=== PATIENT | male | born 1975 | race Caucasian/White ===

== ENCOUNTER 2016-12-14 16:39 | Inpatient (IN) | payer MEDICAID ==
--- NOTE | 2016-12-14 17:04 | C.PDOC ---
History Of Present Illness Pt was transferred here for psychiatric admission. Pt was medically cleared at the referring facility. Time Seen by Provider: 12/14/16 16:52 Chief Complaint (Nursing): Psychiatric Evaluation History Per: Patient Onset/Duration Of Symptoms: Days Current Symptoms Are (Timing): Still Present Suicide/Self Injury Attempted (Context): None Modifying Factor(s): Alcohol Severity: Moderate Associated Symptoms: Depression Additional History Per: Prior Records Past Medical History Reviewed: Historical Data, Nursing Documentation, Vital Signs Vital Signs: Last Vital Signs Temp 98.5 F 12/14/16 16:44 Pulse 87 12/14/16 16:44 Resp 18 12/14/16 16:44 BP 137/64 12/14/16 16:44 Pulse Ox 96 12/14/16 16:44 - Medical History PMH: Bipolar Disorder (?) Surgical History: No Surg Hx Family History: States: Unknown Family Hx - Social History Hx Alcohol Use: Yes (daily) Hx Substance Use: No - Immunization History Hx Tetanus Toxoid Vaccination: No Hx Influenza Vaccination: No Hx Pneumococcal Vaccination: No Review Of Systems Constitutional: Negative for: Fever Cardiovascular: Negative for: Chest Pain Respiratory: Negative for: Shortness of Breath Gastrointestinal: Negative for: Vomiting, Abdominal Pain Musculoskeletal: Negative for: Neck Pain Skin: Negative for: Rash Neurological: Negative for: Weakness, Seizures Psych: Negative for: Psychosis Physical Exam - Physical Exam Appears: Non-toxic, No Acute Distress Skin: Normal Color, Warm, Dry, No Rash Head: Atraumatic, Normacephalic Eye(s): bilateral: Normal Inspection, PERRL, EOMI Neck: Normal ROM, Supple Cardiovascular: Rhythm Regular Respiratory: Normal Breath Sounds, No Accessory Muscle Use Gastrointestinal/Abdominal: Soft, No Tenderness Extremity: Normal ROM, No Deformity Neurological/Psych: Oriented x3, Normal Speech, Normal Motor, Normal Sensation ED Course And Treatment O2 Sat by Pulse Oximetry: 96 Pulse Ox Interpretation: Normal Disposition - Disposition Disposition: HOSPITALIZED Disposition Time: 17:04 Condition: STABLE - Clinical Impression Clinical Impression: Alcohol abuse, Depression Decision To Admit - Pt Status Changed To: Hospital Disposition Of: Inpatient - Admit Certification Admit to Inpatient:: After my assessment, the patient will require hospitalization for at least two midnights. This is because of the severity of symptoms shown, intensity of services needed, and/or the medical risk in this patient being treated as an outpatient. - InPatient: Physician Admission Certification: I certify that this patient requires 2 or more midnights of care for the following reason:: Psych. - . Bed Request Type: Psychiatry Admitting Physician: Trey Kessler Patient Diagnosis: Alcohol abuse, Depression
[2016-12-14 18:13] VITALS: O2SAT 99
--- NOTE | 2016-12-14 18:30 | PCM.BM ---
<Melania Dillon - Last Filed: 12/14/16 18:27> Treatment Plan Problems - Problems identified on initial assessmt Depression Date Initiated: 12/14/16 Time Initiated: 18:28 Assessment reference: NA Status: Active Alcohol abuse Date Initiated: 12/14/16 Time Initiated: 18:28 Assessment reference: NA Status: Active Treatment assets and liabiliti Patient Assests: adapts well, physically healthy, negotiates basic needs Patient Liabilities: live alone, substance abuse (Alcohol) - Milieu Protocol Maintain good personal hygiene: daily Encourage regular showers, daily Remind patient to perform daily oral care Maintain personal safety: every shift Educate patient to report safety concerns to staff, every shift Monitor environment for contraband/sharps Medication safety: Monitor for expected outcome, potential side effects: every shift, Assess barriers to learning: every shift, Assess readiness for medication education: every shift <Trey Kessler - Last Filed: 12/15/16 10:48> - Diagnosis (1) Depression Status: Acute Interventions: 12/15/16 10:48 Attend groups Take meds (2) Alcohol dependence Status: Acute Interventions: 12/15/16 10:48 Attend groups Take meds <Sivan Poe - Last Filed: 12/15/16 11:10>
[2016-12-14] MEDS ORDERED: Aluminum Hydroxide/Magnesium Hydroxide Susp (30 mL) PO PRN (18:55)
[2016-12-14] MEDS ORDERED: Aritificial Tears (15ml) OU SCH (20:15)
[2016-12-14] MEDS ORDERED: Aritificial Tears (15ml) OU PRN (21:20)
--- NOTE | 2016-12-15 10:46 | PCM.PSYCH ---
Initial Psychiatric Evaluation - Initial Psychiatric Evaluation Type of Admission: Voluntary Legal Status: Capacity Chief Complaint (in patient's own words): i was feeling depressed and suicidal History of Present Illness and Precipitating Events: Patient is a 41 year old single, unemployed male. He has a history of alcohol use disorder - severe and depression, and was admitted for treatment. Patient states he has "been drinking too much and I need to stop". He states that he started drinking after his mother two years ago in 2014 from pulmonary fibrosis. Patient drinks 1 750ml bottle of Vodka daily and his last drink was yesterday. Patient was transferred [facility]. Patient appeared depressed and continued to have poor insight and judgment regarding his illness and drinking. Patient remained a poor historian. he was superficially cooperative but guarded about the details. As per the staff, patient appeared very depressed and had withdrawal symptoms including shakes, anxiety, headache, nausea and sweating. Today patient appeared better than yesterday. He reports that he has been feeling depressed because he is cleaning out his mother's possessions now, so he drinks while doing so. Patient remained guarded depressive symptoms. He remained guarded about any withdrawal symptoms. He reports that he has worked and lived in [facility] for 9 years and came back to the [place] 6 months before his mother . He said that one day he went to the pharmacy to get medications for her and when he returned, she had . At that time, he went to [facility] for detox and treatment for depression. Patient reports that he has a conference in [place] on the and wants to be detoxed and discharged before then. He has a job offer to work [employer] in [facility] starting in January. Before he starts that job, he wants to do a 2 week rehab program in December. He reports depressed mood, anxiety and anhedonia. He denies any auditory or visual hallucinations. Past psych hx: [facility] for alcohol detox & depression in 2014. Denies use of tobacco, heroin, cocaine, marijuana and other drugs Family psych hx: denies psychiatric issues or drug use Social hx: Single, lives by himself, currently unemployed, has no kids Current Medications: Active Medications Generic Name Dose Route Start Last Admin Trade Name Freq PRN Reason Stop Dose Admin Al Hydrox/Mg Hydrox/Simethicone 30 ml 12/14/16 18:55 Maalox 30 Ml PO TID PRN Indigestion / Heartburn Artificial Tears 0 ml 12/14/16 21:20 Artificial Tears OU Q6H PRN Dry eyes Benztropine Mesylate 2 mg 12/14/16 18:53 Cogentin PO Q6 PRN Extra Pyramidal Symptoms Chlordiazepoxide 25 mg 12/15/16 00:00 12/15/16 06:24 Librium PO 12/19/16 23:59 25 mg Q6 HARDIK Administration Taper Chlordiazepoxide 25 mg 12/14/16 18:52 12/14/16 21:30 Librium PO 25 mg Q4H PRN Administration Alcohol Withdrawal Clonidine HCl 0.1 mg 12/14/16 18:52 Catapres PO Q4H PRN Symptoms of alcohol withdrawl Diphenhydramine HCl 50 mg 12/14/16 18:53 12/14/16 21:30 Benadryl PO 50 mg Q6 PRN Administration Extra Pyramidal Symptoms Folic Acid 1 mg 12/15/16 10:00 Folic Acid PO DAILY [facility] Haloperidol 5 mg 12/14/16 18:53 Haldol PO Q8 PRN Moderate Agitation Loperamide HCl 2 mg 12/14/16 18:55 Imodium PO Q8 PRN Diarrhea Multivitamins 1 tab 12/15/16 10:00 Hexavitamin PO DAILY [facility] Ondansetron HCl 4 mg 12/14/16 18:53 Zofran Tab PO Q8H PRN Nausea/Vomiting Paroxetine HCl 10 mg 12/15/16 10:00 Paxil PO QAM [facility] Thiamine HCl 100 mg 12/15/16 10:00 Vitamin B1 Tab PO DAILY [facility] Trazodone HCl 50 mg 12/14/16 18:52 12/14/16 23:52 Desyrel PO 50 mg HS PRN Administration Insomnia Past Psychiatric History - Past Psychiatric History Previous Treatment History: Inpatient Pertinent Medical Hx (Current Medical&Sleep Prob, Allergies): Allergies Allergy/AdvReac Type Severity Reaction Status Date / Time No Known Allergies Allergy Verified 12/14/16 17:05 Review of Systems - Review of Systems All systems: reviewed and no additional remarkable complaints except - Psychiatric Psychiatric: As Per HPI, Abnormal Sleep Pattern, Anxiety, Depression, Difficulty Concentrating, Irritability. absent: Auditory Hallucinations, Hallucinations, Suicidal Ideation, Visual Hallucinations, Tactile Hallucinations Mental Status Examination - Personal Presentation Personal Presentation: Looks stated age - Affect Affect: Constricted, Depressed - Motor Activity Motor Activity: Calm - Reliability in Providing Information Reliability in Providing Information: Good - Speech Speech: Organized - Mood Mood: Depressed, Anxious - Formal Thought Process Formal Thought Process: No Impairment - Obsessions/Compulsions Obsessions: No Compulsions: No - Cognitive Functions Orientation: Person, Place, Situation, Time Sensorium: Alert Attention/Concentration: Attentive Abstract Thinking: [place] Estimate of Intelligence: Below average Judgement: Imparied, as evidence by: Poor judgement, Imparied, as evidence by: Lack of insight into illness, Intact, as evidence by: Insight regarding need for hospitalization - Risk Risk: Suicidal, Withdrawal, Diminished functioning - Strength & Assets Inventory Strength & Assets Inventory: Intelligence, Family support, Education, Employment history, Cooperative - Limitations Limitations: Living alone DSM 5 DX - DSM 5 DSM 5 Diagnosis: Major depressive disorder recurrent severe without psychotic features Alcohol use disorder severe Alcohol withdrawal uncomplicated - Recommended/Plan of Treatment Treatment Recommendations and Plan of Treatment: Major depressive disorder recurrent severe without psychotic features CBT Psychoeducation Supportive therapy, group therapy, individual therapy Paxil 10 mg daily Trazodone 50 mg by mouth daily at bedtime Alcohol use disorder severe CBT Psychoeducation Supportive therapy, individual therapy Use HI for abstinence Alcohol withdrawal uncomplicated CBT Psychoeducation Supportive therapy, individual therapy Librium when necessary Start Librium taper Start folic acid/thiamine/multivitamin Projected ELOS: 4-5 days Prognosis: Good with treatment - Smoking Cessation Smoking Cessation Initiated: No
[2016-12-15] MEDS: Multiple Vitamins Tab PO SCH (11:26)
[2016-12-16] MEDS ORDERED: Pneumococcal 23-Valent Vaccine IM ONE (10:00)
[2016-12-16] MEDS: Multiple Vitamins Tab PO SCH (10:22)
[2016-12-16 14:46] VITALS: RESP 18; TEMP 97.4
[2016-12-16 16:02] VITALS: BP 116/76; PULSE 76
--- NOTE | 2016-12-16 20:29 | PCM.PYCHPN ---
Psychiatric Progress Note - Psychiatric Progress Note Patient seen today, length of contact: 15 minutes Patient Chief Complaint: I'm feeling better. Can I be discharged as I'm thinking I'm doing nothing. Problems Identified/Issues Discussed: Patient seen. Chart reviewed. Case discussed with the staff. Issues related to illness and treatment were discussed with the patient. Patient reported compliant with treatment with no adverse affects. Tolerating treatment well. Patient was asking for Ambien for sleep. Education provided about Ambien. We'll continue with trazodone and Atarax. At the time of evaluation, patient was awake alert oriented 3, had no delusions, no auditory or visual hallucinations , no suicidal ideations or homicidal ideations. Medical Problems: None reported Diagnostic Results: Reviewed DSM 5 Symptoms Update: Improvement with treatment Medication Change: No Medical Record Reviewed: Yes Mental Status Examination - Cognitive Function Orientation: Person, Place, Situation, Time Memory: Intact Attention: WNL Concentration: WNL Association: WNL Fund of Knowledge: WN Decription of patient's judgement and insights: Fair - Mood Mood: Neutral - Affect Affect: Other (Appropriate) - Speech Speech: Appropriate - Formal Thought Process Formal Thought Process: No Impairment Psychotic Thoughts and Behaviors: None - Suicidal Ideation Suicidal Ideation: No - Homicidal Ideation Homicidal Ideation: No Goal/Treatment Plan - Goal/Treatment Plan Need for Continued Stay: Remain at risks for inpatient hospitalization, Discharge may exacerbated symptoms, Severe functional impairment Progress Toward Problem(s) and Goals/Treatment Plan: Improving with treatment Patient education Supportive therapy Continue treatment as before Estimated Date of D/C: 12/18/16 - Smoking Cessation Smoking Cessation Initiated: No
[2016-12-17] MEDS: Multiple Vitamins Tab PO SCH (09:55)
--- NOTE | 2016-12-17 10:06 | PCM.PYCHDC ---
Mental Status Examination - Mental Status Examination Orientation: Person Discharge Summary - Discharge Note Consultations:: List each consultation separately and include: 1. Reason for request. 2. Findings. 3. Follow-up Summary of Hospital Course include:: 1. Description of specific treatment plan utilized for patients during their course of treatmen. 2. Summarize the time- course for resolution of acute symptoms and/or regressed behaviors. 3. Describe issues identified and worked on during hospitalization. 4. Describe medication utilized. 5. Describe medical problems identified and treated. 6. Reassessment of suicide risk - Final Diagnosis (DSM 5) Condition upon Discharge: STABLE Disposition: HOME/ ROUTINE Prescriptions/Medication Reconciliation: Escitalopram [Lexapro] 10 mg PO DAILY #30 tab Gabapentin [Neurontin] 300 mg PO TID #90 cap Naltrexone [Revia] 50 mg PO DAILY #30 tab QUEtiapine [Seroquel] 100 mg PO HS #30 tab
== END 2016-12-17 10:52 | disposition home or self-care (01) | DRG 430 ==
LOC: C.ER 16:39 → C.5E 17:05
PROVIDERS: ADMIT Psychiatry & Neurology Psychiatry; ATTEND Psychiatry & Neurology Psychiatry
PROC: GZ3ZZZZ Medication Management (ICD-10-PCS; principal; 2016-12-14)
PROC: HZ89ZZZ Medication Management for Substance Abuse Treatment, Other Replacement Medication (ICD-10-PCS; 2016-12-14)
PROC: GZHZZZZ Group Psychotherapy (ICD-10-PCS; 2016-12-14)
PROC: GZ56ZZZ Individual Psychotherapy, Supportive (ICD-10-PCS; 2016-12-14)
PROC: HZ59ZZZ Individual Psychotherapy for Substance Abuse Treatment, Supportive (ICD-10-PCS; 2016-12-14)
DX: F33.2 Major depressive disorder, recurrent severe without psychotic features (principal); F10.230 Alcohol dependence with withdrawal, uncomplicated